=== PATIENT | female | born 1930 | race Caucasian/White ===

== ENCOUNTER → 2016-04-24 | Outpatient (CLI) | payer MEDICARE, BC ==
[~2016-04-24] MED LIST: BACTRIM DS 8001 TAB PO; DITROPAN 5MG TAB5 MG PO; HCTZ 25MG TAB25 MG PO; TIMOLOL MALEATE5 M1 OP; XALATAN EYE DROPS; ZOCOR 20MG20 MG PO
== END ==
LOC: MC.RAD 09:00
DX: Z12.31 Encounter for screening mammogram for malignant neoplasm of breast (principal); C50.212 Malignant neoplasm of upper-inner quadrant of left female breast; D24.2 Benign neoplasm of left breast; D24.1 Benign neoplasm of right breast; Z85.3 Personal history of malignant neoplasm of breast; Z80.3 Family history of malignant neoplasm of breast

== ENCOUNTER 2016-04-28 19:33 | Emergency (ER) | payer MEDICARE, BC ==
[~2016-04-28] VITALS: Ht 167.6 cm; Wt 68.2 kg
[2016-04-28 19:38] VITALS: TEMP 97.7
[2016-04-28 20:20] LABS: BASO % 0.1 % (0.0-2.0); EOS # 0.1 (0.0-0.7); EOS % 0.7 % (0-4.0); GRAN # 8.5 (1.4-6.5); GRAN % 93.5 % (42.2-75.2); HEMATOCRIT 37.7 % (37.0-47.0); HEMOGLOBIN 12.5 g/dl (12.5-16.0); LYMPH # 0.1 (1.2-3.4); LYMPH % 1.3 % (20.0-51.0); MEAN CELL VOLUME 97 fl (80.0-100.0); MEAN CORPUSCULAR HEMOGLOBIN 32 pg (27.0-31.0); MEAN CORPUSCULAR HGB CONC 33 g/dl (33.0-37.0); MEAN PLATELET VOLUME 8.5 fl (7.4-10.4); MONO # 0.4 (0.1-0.6); MONO % 4.1 % (1.7-9.3); PLATELET COUNT 237 K/mm3 (130-400); RED BLOOD COUNT 3.89 M/mm3 (4.10-5.30); REDCELL DISTRIBUTION WIDTH-CV 13.3 % (11.5-14.5); WHITE BLOOD COUNT 9.1 K/mm3 (4.8-10.8)
[2016-04-28 20:21] LABS: ALANINE AMINOTRANSFERASE 83 U/L (9-52); ALBUMIN 4.1 gm/dL (3.5-5.0); ALKALINE PHOSPHATASE 101 U/L (50-136); ANION GAP 11 mmol/L (7-16); BILIRUBIN,TOTAL 0.9 mg/dL (0.0-1.0); BLOOD UREA NITROGEN 20 mg/dL (7-17); CALCIUM 10.1 mg/dL (8.4-10.2); CARBON DIOXIDE 27 mmol/L (22-30); CHLORIDE 98 mmol/L (98-107); CREATININE, serum 0.91 mg/dL (0.52-1.25); GLUCOSE 121 mg/dL (74-106); POTASSIUM 3.9 mmol/L (3.4-5.0); SODIUM 136 mmol/L (137-145); TOTAL PROTEIN 7.3 gm/dL (6.4-8.2)
[2016-04-28 20:22] LABS: PROTHROMBIN TIME 11.2 SECONDS (9.7-12.8)
[2016-04-28 20:25] LABS: PARTIAL THROMBOPLASTIN TIME 23.1 SECONDS (26.0-37.0)
[2016-04-28 20:35] LABS: TROPONIN-I < 0.012 ng/mL (0.000-0.034)
[2016-04-28 23:28] VITALS: BP 147/78; PULSE 84
== END 2016-04-28 23:30 | disposition home or self-care (01) ==
LOC: COL.ER 19:33
PROVIDERS: Emergency Medicine
DX: R55 Syncope and collapse (principal)
CPT/HCPCS: J7030

== ENCOUNTER 2017-09-10 22:22 | Observation (INO) | payer MEDICARE, BC ==
[~2017-09-10] VITALS: Ht 170.2 cm; Wt 61.7 kg
[~2017-09-10 22:22] MED LIST changes: -XALATAN EYE DROPS; +XALATAN EYE DROPS OP
[2017-09-10] MEDS ORDERED: ARICEPT10 MG PO (22:42)
[2017-09-10] MEDS ORDERED: NAMENDA 10MG TA10 MG PO (22:42)
[2017-09-10 22:58] LABS: BASO % 0.5 % (0.0-2.0); EOS # 0.1 (0.0-0.7); EOS % 0.8 % (0-4.0); GRAN % 82.6 % (42.2-75.2); HEMATOCRIT 39.4 % (37.0-47.0); HEMOGLOBIN 13.1 g/dl (12.5-16.0); LYMPH # 0.6 (1.2-3.4); LYMPH % 9.8 % (20.0-51.0); MEAN CELL VOLUME 98 fl (80.0-100.0); MEAN CORPUSCULAR HEMOGLOBIN 32 pg (27.0-31.0); MEAN CORPUSCULAR HGB CONC 33 g/dl (33.0-37.0); MEAN PLATELET VOLUME 8.8 fl (7.4-10.4); MONO # 0.4 (0.1-0.6); MONO % 5.8 % (1.7-9.3); PLATELET COUNT 195 K/mm3 (130-400); RED BLOOD COUNT 4.04 M/mm3 (4.10-5.30); REDCELL DISTRIBUTION WIDTH-CV 13.7 % (11.5-14.5)
[2017-09-10 23:10] LABS: ALANINE AMINOTRANSFERASE 27 U/L (9-52); ALBUMIN 3.9 gm/dL (3.5-5.0); ALKALINE PHOSPHATASE 87 U/L (50-136); ANION GAP 9 mmol/L (7-16); AST,SGOT 20 U/L (15-37); BILIRUBIN,TOTAL 0.5 mg/dL (0.0-1.0); BLOOD UREA NITROGEN 13 mg/dL (7-17); C-REACTIVE PROTEIN 0.9 mg/dL (0.0-0.9); CALCIUM 9.5 mg/dL (8.4-10.2); CARBON DIOXIDE 27 mmol/L (22-30); CHLORIDE 97 mmol/L (98-107); CREATININE, serum 0.81 mg/dL (0.52-1.25); GLUCOSE 112 mg/dL (74-106); POTASSIUM 3.9 mmol/L (3.4-5.0); SODIUM 133 mmol/L (137-145); TOTAL PROTEIN 6.8 gm/dL (6.4-8.2)
[2017-09-10 23:20] LABS: TROPONIN-I < 0.012 ng/mL (0.000-0.034)
[2017-09-10 23:34] VITALS: BP 178/79; PULSE 75
[2017-09-10 23:47] LABS: COLLECTION METHOD CLEAN CATCH
[2017-09-10 23:50] VITALS: BP 165/71; PULSE 66; TEMP 98.3
[2017-09-10 23:56] LABS: MUCOUS Present /lpf; PH 6 (5-8); SQUAMOUS EPITHELIAL 0-2 /hpf; URINE APPEARANCE Clear; URINE BACTERIA None Seen /hpf; URINE BILIRUBIN Negative (NEGATIVE); URINE BLOOD Negative (NEGATIVE); URINE COLOR Yellow; URINE GLUCOSE Negative (NEGATIVE); URINE KETONE Trace (NEGATIVE); URINE LEUKOCYTE ESTERASE Negative (NEGATIVE); URINE NITRATE Negative (NEGATIVE); URINE PROTEIN(semi-quant) Negative (NEGATIVE); URINE RBC 0-2 /hpf; URINE UROBILINOGEN Negative (NEGATIVE)
[2017-09-11 01:10] VITALS: BP 158/71; PULSE 76; TEMP 98.5
[2017-09-11] MEDS ORDERED: ASPIRIN 81M81 MG/TA2 PO (01:15)
[2017-09-11 04:25] VITALS: BP 145/84; PULSE 74; TEMP 98.6
[2017-09-11 05:11] LABS: BASO % 0.6 % (0.0-2.0); EOS % 0.6 % (0-4.0); GRAN # 4.1 (1.4-6.5); HEMATOCRIT 40.4 % (37.0-47.0); HEMOGLOBIN 13.3 g/dl (12.5-16.0); LYMPH # 0.7 (1.2-3.4); LYMPH % 12.6 % (20.0-51.0); MEAN CELL VOLUME 98 fl (80.0-100.0); MEAN CORPUSCULAR HEMOGLOBIN 32 pg (27.0-31.0); MEAN CORPUSCULAR HGB CONC 33 g/dl (33.0-37.0); MEAN PLATELET VOLUME 8.4 fl (7.4-10.4); MONO # 0.5 (0.1-0.6); PLATELET COUNT 225 K/mm3 (130-400); RED BLOOD COUNT 4.11 M/mm3 (4.10-5.30); REDCELL DISTRIBUTION WIDTH-CV 13.7 % (11.5-14.5)
[2017-09-11 05:23] LABS: CALCIUM 9.5 mg/dL (8.4-10.2); CREATININE, serum 0.76 mg/dL (0.52-1.25); MAGNESIUM 1.8 mg/dL (1.6-2.3); POTASSIUM 3.9 mmol/L (3.4-5.0)
[2017-09-11 05:36] LABS: TROPONIN-I 6 HR POST INITIAL 0.013 ng/mL (0.000-0.034)
[2017-09-11 05:54] LABS: THYROID STIMULATING HORMONE 1.71 uIU/mL (0.465-4.680)
[2017-09-11 07:27] VITALS: BP 138/55; PULSE 79; TEMP 99.4
[2017-09-11 11:14] VITALS: BP 108/94; PULSE 73; TEMP 97.8
[2017-09-11 16:20] VITALS: BP 125/61; PULSE 75; TEMP 98.1
[2017-09-11 19:37] VITALS: BP 136/62; PULSE 71; TEMP 98.6
[2017-09-12 00:37] VITALS: BP 130/74; PULSE 85; TEMP 98.1
[2017-09-12 04:46] VITALS: BP 176/84; PULSE 62; TEMP 98.5
[2017-09-12 07:51] VITALS: BP 183/93; PULSE 67; TEMP 98
[2017-09-12] MEDS ORDERED: TESSALON P100 MG/CAP PO (09:04)
[2017-09-12 12:15] VITALS: BP 155/77; PULSE 65; TEMP 98.7
== END 2017-09-12 14:31 | disposition home or self-care (01) ==
LOC: COL.ER 22:22 → MEDICAL 09-11 00:07 → EDBEDREQ 09-11 00:16 → MEDICAL 09-12 14:31
PROVIDERS: Emergency Medicine; Internal Medicine; Nurse Practitioner Family
DX: R55 Syncope and collapse (principal); E78.5 Hyperlipidemia, unspecified; J06.9 Acute upper respiratory infection, unspecified; H40.9 Unspecified glaucoma; G31.84 Mild cognitive impairment of uncertain or unknown etiology; I08.2 Rheumatic disorders of both aortic and tricuspid valves; E44.0 Moderate protein-calorie malnutrition; Z85.3 Personal history of malignant neoplasm of breast; Z90.710 Acquired absence of both cervix and uterus; Z79.82 Long term (current) use of aspirin; Z88.5 Allergy status to narcotic agent; Z90.12 Acquired absence of left breast and nipple; Z82.49 Family history of ischemic heart disease and other diseases of the circulatory system
CPT/HCPCS: A9585; G0378; G8978-GP; G8979-GP; J7030; J7040

== ENCOUNTER → 2017-10-02 | Outpatient (CLI) | payer MEDICARE, BC ==
[~2017-10-02] MED LIST changes: +ARICEPT10 MG PO; +ASPIRIN 81M81 MG/TA2 PO; +NAMENDA 10MG TA10 MG PO; +TESSALON P100 MG/CAP PO
== END ==
LOC: COL.CARD 12:59
DX: R55 Syncope and collapse (principal); I49.9 Cardiac arrhythmia, unspecified

== ENCOUNTER 2018-06-13 20:57 | Emergency (ER) | payer MEDICARE, BC ==
[~2018-06-13] VITALS: Ht 170.2 cm; Wt 70.5 kg
[2018-06-13 20:57] VITALS: TEMP 97.6
[2018-06-13] MEDS ORDERED: LEXAPRO 10MG10 MG PO (21:19)
[2018-06-13 21:35] LABS: BASO % 1.1 % (0.0-2.0); EOS # 0.1 (0.0-0.7); EOS % 2.6 % (0-4.0); GRAN # 2.1 (1.4-6.5); GRAN % 60.2 % (42.2-75.2); HEMOGLOBIN 12.1 g/dl (12.5-16.0); LYMPH # 0.9 (1.2-3.4); LYMPH % 24.9 % (20.0-51.0); MEAN CELL VOLUME 100 fl (80.0-100.0); MEAN CORPUSCULAR HEMOGLOBIN 33 pg (27.0-31.0); MEAN CORPUSCULAR HGB CONC 33 g/dl (33.0-37.0); MEAN PLATELET VOLUME 8.5 fl (7.4-10.4); MONO # 0.4 (0.1-0.6); MONO % 10.3 % (1.7-9.3); PLATELET COUNT 241 K/mm3 (130-400); RED BLOOD COUNT 3.67 M/mm3 (4.10-5.30); REDCELL DISTRIBUTION WIDTH-CV 13.7 % (11.5-14.5)
[2018-06-13 21:36] LABS: HEMATOCRIT 36.8 % (37.0-47.0)
[2018-06-13 21:38] LABS: PROTHROMBIN TIME 11.6 SECONDS (9.7-12.8)
[2018-06-13 21:53] LABS: ALBUMIN 3.7 gm/dL (3.5-5.0); BILIRUBIN,TOTAL 0.3 mg/dL (0.0-1.0); CALCIUM 9.4 mg/dL (8.4-10.2); CREATININE, serum 0.9 (0.52-1.25); POTASSIUM 4.4 mmol/L (3.4-5.0); TOTAL PROTEIN 6.6 gm/dL (6.4-8.2)
[2018-06-13 23:15] LABS: COLLECTION METHOD CLEAN CATCH
[2018-06-13] MEDS ORDERED: ASPIRIN 32325 MG/TAB PO (23:20)
[2018-06-13 23:23] LABS: MUCOUS Present /lpf; PH 6 (5-8); SQUAMOUS EPITHELIAL 0-2 /hpf; URINE APPEARANCE Clear; URINE BACTERIA None Seen /hpf; URINE BILIRUBIN Negative (NEGATIVE); URINE BLOOD Negative (NEGATIVE); URINE COLOR Yellow; URINE GLUCOSE Negative (NEGATIVE); URINE KETONE Negative (NEGATIVE); URINE LEUKOCYTE ESTERASE Negative (NEGATIVE); URINE NITRATE Negative (NEGATIVE); URINE PROTEIN(semi-quant) Negative (NEGATIVE); URINE RBC 0-2 /hpf; URINE UROBILINOGEN Negative (NEGATIVE)
[2018-06-14] VITALS: BP 188/99; PULSE 64
== END 2018-06-14 | disposition home or self-care (01) ==
LOC: COL.ER 20:57
PROVIDERS: Emergency Medicine
DX: S52.602A Unspecified fracture of lower end of left ulna, initial encounter for closed fracture (principal); G45.9 Transient cerebral ischemic attack, unspecified; I10 Essential (primary) hypertension; F03.90 Unspecified dementia, unspecified severity, without behavioral disturbance, psychotic disturbance, mood disturbance, and anxiety; W19.XXXA Unspecified fall, initial encounter
CPT/HCPCS: J7030